=== PATIENT | male | born 1955 | race Caucasian/White ===

== ENCOUNTER 2020-08-24 22:11 | Emergency (ER) | payer MEDICARE, BC ==
[2020-08-24 22:24] VITALS: BP 111/70; PULSE 92; RESP 16; TEMP 98.5
[2020-08-24] MEDS ORDERED: methylPREDNISolone SOD SUCCI 125 MG/2 ML VIAL IV STA (22:49)
[2020-08-24] MEDS ORDERED: FAMOTIDINE 20 MG/2 ML VIAL IV STA (22:49)
[2020-08-24] MEDS ORDERED: SULFAMETH-TMP DS STARTER PACK 2 TAB BTL PO STA (22:49)
--- NOTE | 2020-08-24 22:52 | ED ---
General Adult HPI - General Chief complaint: Allergic Reaction Stated complaint: Allergic Reaction Time Seen by Provider: 08/24/20 22:19 Source: patient, EMS Mode of arrival: EMS Limitations: no limitations - History of Present Illness Initial comments: 64 year-old male patient presents to the emergency department for evaluation of bug bite to the right axillary region. Patient states last night he was working out in the yard he felt a sharp sting to the right armpit area. States later in the evening he noticed several large area of redness and swelling underneath the armpit. Patient states the area is extremely itchy. Denies any drainage. States there is some discomfort as well. States he has done internasal antihistamines or nothing oral. Denies taking any medication for his symptoms. Denies any lip swelling, tongue swelling, throat swelling. Denies any shortness of breath. Denies fever or chills. Denies any rash elsewhere. States that the area is improved since yesterday. - Related Data Previous Rx's Medication Instructions Recorded Famotidine [Pepcid] 20 mg PO DAILY #3 tablet 08/24/20 Sulfamethoxazole/Trimethoprim 1 each PO BID #20 tablet 08/24/20 [Bactrim DS 800-160 mg] predniSONE 50 mg PO DAILY #3 tab 08/24/20 Allergies Allergy/AdvReac Type Severity Reaction Status Date / Time bee venom protein (honey bee) Allergy Swelling Verified 08/24/20 22:35 Review of Systems ROS Statement: Those systems with pertinent positive or pertinent negative responses have been documented in the HPI. ROS Other: All systems not noted in ROS Statement are negative. Past Medical History Past Medical History: Hypertension History of Any Multi-Drug Resistant Organisms: None Reported Past Surgical History: No Surgical Hx Reported Past Psychological History: No Psychological Hx Reported Smoking Status: Never smoker Past Alcohol Use History: Occasional Past Drug Use History: None Reported General Exam Limitations: no limitations General appearance: alert, in no apparent distress, other (This is a well- developed, well-nourished adult male patient in no acute distress.) Eye exam: Present: normal appearance, PERRL, EOMI. Absent: scleral icterus, conjunctival injection, periorbital swelling ENT exam: Present: normal exam, normal oropharynx, mucous membranes moist Respiratory exam: Present: normal lung sounds bilaterally. Absent: respiratory distress, wheezes, rales, rhonchi, stridor Cardiovascular Exam: Present: regular rate, normal rhythm, normal heart sounds. Absent: systolic murmur, diastolic murmur, rubs, gallop, clicks Extremities exam: Present: full ROM, normal capillary refill, other (There is large area of erythema with a centralized indurated area. Area is tender to touch. No drainage noted.). Absent: tenderness, pedal edema, joint swelling, calf tenderness Course Vital Signs 08/24/20 22:14 Temperature 98.5 F Pulse Rate 92 Respiratory 16 Rate Blood Pressure 111/70 O2 Sat by Pulse 96 Oximetry Medical Decision Making - Medical Decision Making 64-year-old male patient presents to the emergency department today for evaluation of bug bite beneath the right armpit. Physical examination did reveal a large area of erythema with a centralized indurated area. Area is not fluctuant. There is no drainage. He is afebrile, vital signs. No lip, tongue, or throat swelling. He will be given Pepcid, Solu-Medrol, and discharged with a Bactrim prescription just in case. He is instructed to follow up his primary care physician for recheck in 1-2 days. Return parameters were discussed in detail. He verbalizes understanding and agrees with this plan. My attending is Dr. Crystal. Disposition Clinical Impression: Bug bite Disposition: HOME SELF-CARE Condition: Good Instructions (If sedation given, give patient instructions): Insect Bite or Sting (ED) Additional Instructions: Take medications as directed. Apply warm compresses to the right armpit. Follow-up through primary care physician for recheck in 1-2 days. Return to the emergency department for any new, worsening, or concerning symptoms. Prescriptions: Sulfamethoxazole/Trimethoprim [Bactrim DS 800-160 mg] 1 each PO BID #20 tablet Famotidine [Pepcid] 20 mg PO DAILY #3 tablet predniSONE 50 mg PO DAILY #3 tab Is patient prescribed a controlled substance at d/c from ED?: No Referrals: Herve Flores DO [Primary Care Provider] - 1-2 days Time of Disposition: 22:52
== END 2020-08-24 23:05 | disposition home or self-care (01) ==
LOC: EC 22:11
DX: S40.861A Insect bite (nonvenomous) of right upper arm, initial encounter (principal); I10 Essential (primary) hypertension; W57.XXXA Bitten or stung by nonvenomous insect and other nonvenomous arthropods, initial encounter; Y92.096 Garden or yard of other non-institutional residence as the place of occurrence of the external cause
CPT/HCPCS: 96374; 96375; 99283